=== PATIENT | female | born 1960 | race Caucasian/White ===

== ENCOUNTER 2021-11-20 07:46 | Emergency (ER) | payer BC ==
[~2021-11-20] VITALS: Ht 172.7 cm; Wt 63.8 kg
[2021-11-20 13:07] VITALS: BP 135/87
== END 2021-11-20 13:12 | disposition home or self-care (01) ==
LOC: M ED 07:46
DX: M71.21 Synovial cyst of popliteal space [Baker], right knee (principal); M17.11 Unilateral primary osteoarthritis, right knee; M25.561 Pain in right knee; M79.661 Pain in right lower leg; M81.0 Age-related osteoporosis without current pathological fracture; M85.80 Other specified disorders of bone density and structure, unspecified site; Z88.5 Allergy status to narcotic agent